=== PATIENT | male | born 1990 | race Caucasian/White ===

== ENCOUNTER → 2017-07-31 12:44 | Outpatient (CLI) | payer MEDICARE, MEDICAID, SELFPAY ==
--- NOTE | 2017-07-31 12:53 | MRI_ITS ---
STUDY: MRI RIGHT MIDFOOT REASON FOR EXAM: Fracture one year ago from a fall, without healing. TECHNIQUE: Standardized fat and water weighted pulse sequences were obtained in all 3 orthogonal planes. COMPARISON: Radiographs 03/15/2017. FINDINGS: There is a small tibiotalar joint effusion (inversion recovery sagittal image 15). Normal posterior subtalar articulation. Normal talonavicular articulation. Normal calcaneocuboid articulation. Normal navicular-cuneiform articulations. Normal intercuneiform articulations. Normal first tarsometatarsal articulation. Normal Lisfranc ligament. Normal second and third tarsometatarsal articulations. Normal cuboid fourth and cuboid fifth tarsometatarsal articulation. There is a chronic fracture of the fifth metatarsal base without osseous union (T1 sagittal images 20, 21) with associated bone edema (inversion recovery sagittal images 20, 21). Normal tibialis anterior tendon. Normal extensor hallucis longus tendon. Normal extensor digitorum longus tendons. Normal peroneus longus tendon and distal insertion. Normal peroneus brevis tendon and distal insertion. Normal intrinsic muscles of the foot. Normal plantar fascia. Normal subcutis adipose space. MRI/Lower Ext/No Jt/w/o IMPRESSION: Chronic fracture of the fifth metatarsal base without osseous union and with bone edema. Electronically Signed: Heath Osorio MD at 14:55 EST Tel , Service support ,
--- NOTE | 2017-07-31 13:22 | RAD_ITS ---
STUDY: X-RAY - ORBITS REASON FOR EXAM: Male, 26 years old. This study is being performed as a clearance examination for exclusion of orbital metal, prior to the performance of an MRI examination. TECHNIQUE: 2 view(s) of the orbits were obtained. COMPARISON: None. FINDINGS: Normal bilateral orbits without a metallic orbital foreign body. Normal visualized facial bones. Normal paranasal sinuses. The soft tissue structures are unremarkable. RAD/Orbits for Foreign Body IMPRESSION: No demonstrated metallic orbital foreign body. The patient is cleared for an MRI examination. Electronically Signed: Dev Piedra MD at 13:50 EST Tel [phone], Service support ,
== END ==
PROVIDERS: Family Provider Family Medicine; PCP Family Medicine; Visit Provider Podiatrist
DX: S92.354D Nondisplaced fracture of fifth metatarsal bone, right foot, subsequent encounter for fracture with routine healing (principal); Q66.89 Other specified congenital deformities of feet
CPT/HCPCS: 70030; 73718

== ENCOUNTER 2018-07-24 22:35 | Emergency (ER) | payer MEDICARE, SELFPAY ==
[2018-07-24 22:35] VITALS: BP 123/93; PULSE 77; RESP 16; TEMP 36.6; O2SAT 99; BMI 30.1
[2018-07-24] MEDS: 0.9% Normal Saline 1,000 ML 1000 ML IV (23:04)
[2018-07-24 23:06] VITALS: BP 128/77; BP 129/51; BP 132/70; PULSE 71; PULSE 75; PULSE 76
[2018-07-24 23:23] LABS: Absolute Lymphocyte Count 2.18 X10^3/ul (0.83-4.51); Absolute Neutrophil Count 3.3 X10^3/uL (2.0-7.7); Basophil# 0.04 X10^3/uL; Basophil% 0.7 % (0-1); Eosinophils% 1.7 % (0-5); Hematocrit 43.9 % (40-54); Hemoglobin 14.9 g/dl (13.0-16.5); Lymphocyte # 2.18 X10^3/ul (4.0); Mean Corp Hgb Conc 33.9 g/gl (32-36); Mean Corpuscular Volume 88.3 fL (80-94); Mean Platelet Vol. 9.6 fl (6.2-12.0); Monocyte# 0.41 X10^3/uL; Monocyte% 6.8 % (0-10); Neutrophil # 3.33 X10^3/uL (2.7-7.7); Neutrophil % 54.8 % (47-70); POSITIVE COUNT NO; POSITIVE DIFFERENTIAL NO; POSITIVE MORPHOLOGY NO; Platelet Count 237 K/mm3 (150-450); RBC Distribution Width CV 11.5 % (11.6-14.6); RBC Distribution Width SD 36.8 fl (35.1-43.9); Red Blood Count 4.97 M/mm3 (4.6-6.2); White Blood Count 6.1 K/mm3 (4.4-11.0)
[2018-07-24 23:30] LABS: Anion Gap 7 (5-15); BUN 16 mg/dL (7-18); BUN/Creat Ratio 13.1 RATIO (10-20); Calcium,Total 8.5 mg/dL (8.5-10.1); Chloride 105 mmol/L (98-107); Creatinine, Serum 1.22 mg/dL (0.70-1.30); EST Glomerular Filtration Rate 74 mL/min (>60); Est Glom Filt Rate - Afr Amer 90 mL/min (>60); Estimated Creatinine Clearance 95.15 ml/min; Glucose 87 mg/dL (74-106); Potassium 3.7 mmol/L (3.5-5.1); Sodium Level 141 mmol/L (136-145)
[2018-07-24 23:38] LABS: International Normalized Ratio 1.1; Prothrombin Time (Protime)PT. 13.9 SECONDS (11.7-14.9)
--- NOTE | 2018-07-24 23:49 | ED.DCSUM_ITS ---
- ER Visit Summary Date of Service: 07/24/18 Chief Complaint: Blood in stool History of Present Illness: The patient is a [address] Solis Renee III. He reports that 3 days ago he began having blood in his stool. He reports that he has a history of irritable bowel syndrome and chronic diarrhea. States that 2 days ago he had blood with stool twice. States that yesterday happened 3-4 times and was maroon colored. Today he reports that he had one episode of bright red blood per rectum without stool. He denies any abdominal pain. No rectal pain. No nausea or vomiting. No personal or family history of Crohn's or ulcerative colitis. He had a colonoscopy approximately [address] Wyatt moyer. Review of systems: General: No fever, chills, cold sweats. Cardiovascular: No chest pain, palpitations. Respiratory: No cough, shortness of breath, dyspnea on exertion. Gastrointestinal: No abdominal pain, nausea, vomiting. Genitourinary: No dysuria, frequency, hematuria. Skin: No rash. Neuro: No headache, numbness, weakness. Physical Examination: Vitals: Stable. Afebrile. General: Well-nourished and well-developed. Head: Normocephalic atraumatic. Neck: Supple, no lymphadenopathy. No JVD. Nontender. Cardiovascular: Regular rate and rhythm. No murmurs. Respiratory: No respiratory distress. Clear to auscultation bilaterally. Abdominal: Soft, nontender, nondistended, normal bowel sounds. No guarding, rebound, or peritoneal signs. Rectal: Normal external exam. There are no fissures or hemorrhoids. A digital exam was not performed. Back: Nontender. Extremities: Nontender, no edema. Skin: Normal color, no rash. Neurologic: Alert and oriented ?3. Cranial nerves II through XII are intact. Normal strength and sensation. Psych: Normal affect. Test Results: CBC is normal. Hemoglobin is 14.9. Chem-7 is normal. INR is 1.1. PTT is 29.0. Emergency Department Course and Treatment: Orthostatic vital signs were negative. Patient did have a picture of a bright red blood in the toilet without stool. I do not feel that a Hemoccult is necessary. Treatment Plan: Patient is clinically stable and is stable by labs. He will be discharged instructions follow-up Dr. Paiz as soon as possible. He is instructed to return to emerge part for worsening bleeding, shortness of breath, fatigue, or any other concerns. Disposition: To home in improved and stable condition. Impression: 1. Stable lower GI bleed. This note was generated with fintonication software. It may contain incorrect words, spelling, and punctuation that were not noted in review of the chart prior to signing ED Disposition - Plan for ED Patient: Disposition: Home or Assisted Living Chief Complaint: GI Bleed Instructions: ED Hematochezia Stable Referrals: Dickson Urbina MD [STAFF PHYSICIAN] - As soon as possible
[2018-07-25 00:02] VITALS: BP 112/63; PULSE 74; RESP 18; O2SAT 97
--- NOTE | 2018-07-25 00:03 | ED.RN ---
THIS NURSE REVIEWED D/C INSTRUCTIONS WITH PT. PT VERBALIZED UNDERSTANDING OF INSTRUCTIONS. IV D/C. IV CATHETER INTACT. PT TOLERATED WELL. PT DENIES FURTHER NEEDS OR QUESTIONS AT THIS TIME. PT AMBULATES FROM ROOM ON OWN WITHOUT ASSISTANCE FROM STAFF
== END 2018-07-25 00:05 | disposition home or self-care (01) ==
PROVIDERS: Emergency Provider Emergency Medicine; Family Provider Family Medicine; PCP Family Medicine
DX: K92.1 Melena (principal)
CPT/HCPCS: 80048; 85025; 85610; 85730; 99285; J7030; A4216

== ENCOUNTER 2021-01-23 13:47 | Outpatient (RCR) | payer MEDICARE, MEDICAID, SELFPAY ==
--- NOTE | 2021-01-23 15:18 | HP.PTEVAL ---
Patient's Visit Information ELIZABETH TAPIA Jr. is a 30 year old M referred to Physical Therapy by ISAAC SMITH with a diagnosis of ANKYLOSING SPONDYLITIS, JANICE HIP DEFORMITY, CHRONIC PAIN SYNDROME AND OTHER.. Date of Evaluation: 01/23/21 Physical Therapist: Jazmin Baeza PT, Cert MDT - Visit Plan Frequency: 2-3x /Week Duration: 4-6 Weeks Plan: AQUATIC THERAPY FOR BACK AND HIP PAIN RELIEF, POSTURE CORRECTION/STRENGTHENING, INSTRUCTION IN APPROPRIATE BODY MECHANICS AND ACTIVITY MODIFICATIONS. DLS STARTING WITH A NEUTRAL SPINE PROGRESSING ROM TOLERATED. JANICE LE ROM, STRETCHING AND STRENGTHENING. HEP INSTRUCTION. - Subjective Work/Leisure: UNEMPLOYEED. SOCIAL: LIVES WITH GIRLFRIEND AND SON. Disability: YES - SINCE ABOUT 2016 FOR ANKYLOSING SPONDYLITIS, AND JANICE DEFORMED HIPS. Present symptoms: BACK AND HIP PAIN. PATIENT REPORTS HE IS HERE FOR HIS LOW BACK PAIN AND PAIN IN BOTH HIPS. INTERMITTENT SHOOTING PAIN DOWN RIGHT THIGH TO KNEE AND KNEE GIVES OUT CAUSING FALLS. MY BACK STIFFENS UP TO WHERE I CAN'T MOVE. Present since: ABOUT 5 YEARS AND WORSENING. Pain Scale: WORST 10/10, LEAST 5/10. Currently: 12/08. Commenced as a result of: HAD A BAD FALL AT 5 MONTHS OLD AND HAS HAD PAIN ALL HIS LIFE. FELL PAST ABOUT 15 STEPS HIGH. Symptoms at onset: LOW BACK PAIN AND JANICE LEG DYSFUNCTION. Worse: SITTING, BENDING, STANDING FOR TOO LONG, GOING OVER BUMPS RIDING IN CAR, LIFTING. Better: HEAT AND SOMETIMES MEDICINE. SOMETIMES EX'S HELPS BUT THEN IT HURTS MORE THE NEXT DAY. Disturbed sleep: YES. Previous history/Previous treatment: NO BACK SURGERY. NO HIP SURGERY. BACK REBECA APPROX 5 YEARS AGO BUT IT DIDN'T WORK. NO HIP INJECTIONS. PHYSICAL THERAPY ABOUT 5 YEARS AGO AND SOME OF THE EX'S HELPED AND SOME HURT A LOT. H/O CHIROPRACTIC TREATMENTS WITH TEMPORARY BENEFITS BUT TOO MUCH WOULD MAKE HIM STIFF THE NEXT DAY AND NOT ABLE TO GET OUT OF BED. CURRENTLY IN PAIN MGMT. Coughing/sneezing/straining: POSITIVE. Gait: LIMITED BY RIGHT HIP CATCHING. MAKES IT HARD TO MOVE R LEG AND LIMPS ON RIGHT LEG. MORE PAIN AND PRESSURE IN BACK WITH SITTING THAN WALKING. Difficulty initiating urinatin: NO. Accidents: SEE ABOVE. Unexplained weight loss: NO. Imaging: NO RECENT X-RAYS OF BACK OR HIPS THAT PATIENT CAN RECALL EXCEPT R HIP AFTER A FALL LAST YEAR. SEE [facility] EMR 2018: IMPRESSION: Chronic fracture of the fifth metatarsal base without osseous union and. with bone edema. . Electronically Signed: Heath Osorio MD. at 14:55 EST. PMH/Recent major surgery: PATIENT REPORTS HE FORGETS THINGS A LOT AND HAS SOME PINCHING IN HIS BRAIN AND DECREASED OXYGEN TO HIS BRAIN. BONE CHIP IN RIGHT ANKLE THAT HURTS WHEN HE WALKS. PATIENT REPORTS MAJOR DEPRESSION. *DX'S FROM DR. SMITH'S ORDER: HIGH RISK MEDICATION MGMT. CONGENITAL DEFORMITY OF JANICE HIP JTS. L SI JT PAIN. OA GENERALIZED OF MULTIPLE JOINTS, ANKYLOSING SPONDYLITIS. CHRONIC PAIN SYNDROME. OPIOID DEPENDENCE, CONTINUOUS. THORACIC PAIN* - Objective Sitting/Standing Posture: FAIR. NO RELEVENT LATERAL SHIFT. Active Correction of posture: NE. Other Observations: SLOW ANTALIGIC INDEP GAIT INTO PT LIMPING ON THE RIGHT LE AND NOT USING ANY ASSISTIVE DEVICES AND NO LOB. PATIENT IS ABLE TO TRANSFER FROM SIT TO STAND WITHOUT UE ASSIST. INDEP TRANSFERS SIT TO SUPINE AND REVERSE. Motor deficit: JANICE HIP WEAKNESS. RIGHT HIP GROSSLY 3+ TO 4-/5 AND C/O'S OF PAIN WITH TESTING. L HIP GROSSLY 4/5 AND MIN C/O PAIN WITH TESTING. RIGHT KNEE KNEE AND ANKLE 4/5. LEFT KNEE AND ANKLE 5/5. Sensory deficit: JANICE LE LIGHT TOUCH SENSATION APPEARS INTACT AND SYMMETRICAL. ROM deficit: SUPINE L HIP FLEX APPROX 100 DEG AND RIGHT 90 DEG WITH ERP. JANICE HIP IR IN SUPINE TO NEUTRAL WITH ERP. L HIP ER APPROX 50 DEG, R ER 10 DEG. Reflexes: 2/3 JANICE LE'S. Dural Signs: POSITIVE R LE. NEGATIVE LLE. Lumbar mvmt loss: flex - FAWAD. ext - MOD. R SG - FAWAD. L SG - MOD. PATIENT C/O INCRASED PAIN AND PRESSURE AND POPPING IN LOW BACK AND HIPS WITH LUMBAR ROM TESTING ALL PLANES. Core strength: POOR. Palpation: PATIENT DENIES TENDERNESS WITH PALPATION OF THORACIC, LUMBAR OR JANICE HIP REGIONS. OTHER: PATIENT WAS TEARFUL OFF AND ON THROUGHOUT THE SUBJECTIVE PORTIONG OF THE EVAL TODAY REPORTING HE TRIES TO PUSH THROUGHT THE PAIN BUT CAN'T. DISCUSSED POSSIBLE BENEFITS OF AQUATIC THERAPY AND PATIENT IS AGREEABLE. TREATMENT: NEUROMUSCULAR REEDUCATION - RETRAINING OF MVMT AND POSTURE FOR SITTING, LYING AND STANDING ACTIVITIES. REVIEWED CURRENT HEP FROM PREVIOUS THERAPY WHICH INCLUDES PRONE AND STANDING EXTENSION. ALSO DOING PUSH UPS BUT PATIENT REPORTS THAT IS ABOUT ALL. - Balance/Special Test Scores Oswestry Low Back Score: 47 - Goals Goal 1:: DECREASE C/O LOW BACK AND JANICE HIP PAIN. Goal Time Frame: 4-6 Weeks Goal 2:: IMPROVE PERSONAL CARE, LIFTING, WALKING, SITTING, STANDING, SLEEP, SOCIAL LIFE, TRAVEL AND HOMEMAKING FUNCTION. Goal Time Frame: 4-6 Weeks Goal 3:: INSTRUCT IN PROPHYLAXIS Goal Time Frame: 4-6 Weeks - Anticipated Interventions Patient/Client Instruction: Educate patient on: Condition, Plan of Care, Risk Factors, Benefits of Fitness Program For the Purpose of:: To improve self management Therapeutic Exercise to Include: Strength training, Body mechanics, Postural training, Flexibilty training, Gait and locomotor training, Neuromotor development, In an aquatic setting, Dynamic Lumbar Stabilization For the Purpose of:: To decrease pain, To improve muscle performance and motor function, To increase tolerance to activity/condition/position, To improve ability of physical actions for home/community/work/leisure, To improve gait and locomotor functions Thank you for the opportunity to evaluate your patient. For Medicare and Medicare HMO plans, please review the plan of care and approve it. It will need to be FAXED BACK to us at [phone] for Medicare purposes. For Medicare only, by signing this I certify the plan of care. Please let me know if there are questions or concerns regarding this plan of care. Physician Signature: Date:
--- NOTE | 2021-05-09 13:21 | HP.PT.NRP ---
ELIZABETH Vianey TAPIA Jr. was seen in my office for initial evaluation on 01/23/21. The following Plan of Care was established for this patient: Initial Frequency: 2-3x /Week Initial Duration: 4-6 Weeks Patient/Client Instruction: Educate patient on: Condition, Plan of Care, Risk Factors, Benefits of Fitness Program For the Purpose of:: To improve self management Therapeutic Exercise to Include: Strength training, Body mechanics, Postural training, Flexibilty training, Gait and locomotor training, Neuromotor development, In an aquatic setting, Dynamic Lumbar Stabilization For the Purpose of:: To decrease pain, To improve muscle performance and motor function, To increase tolerance to activity/condition/position, To improve ability of physical actions for home/community/work/leisure, To improve gait and locomotor functions This patient was last seen in our office 01/23/21. Pertinent comments regarding their Physical therapy will appear below: This patient has not returned to Physical Therapy and is appropriate to return to MD for further follow-up as needed. At this point I will be discontinuing this patient from physical therapy. I would be happy to see this patient again in the future if found appropriate by the physician. Thank you! Jazmin Baeza, PT, Cert MDT Balance/Gait/Functional tests - Balance/Special Test Scores Oswestry Low Back Score: 47
== END 2021-01-23 19:00 | disposition home or self-care (01) ==
LOC: PT 13:47
PROVIDERS: PCP Family Medicine
DX: Q65.9 Congenital deformity of hip, unspecified (principal); M53.3 Sacrococcygeal disorders, not elsewhere classified; M15.9 Polyosteoarthritis, unspecified; M54.6 Pain in thoracic spine; G89.4 Chronic pain syndrome; F11.20 Opioid dependence, uncomplicated
CPT/HCPCS: 97112; 97162

== ENCOUNTER 2021-07-14 23:15 | Emergency (ER) | payer MEDICARE, MEDICAID, SELFPAY ==
[2021-07-14 23:16] VITALS: BP 151/90; PULSE 79; RESP 18; TEMP 36.6; O2SAT 98; BMI 26.8
[2021-07-15] MEDS: Lidocaine 2% /Epi 1:100 (20ml) 20 ML VIAL INFILT (01:48)
--- NOTE | 2021-07-15 02:05 | EX.ED.DYSGE1 ---
HPI History of Present Illness Chief Complaint: Other, Pain/Inj Narrative Narrative: Patient is a 30-year-old male who states he felt a lump in his rectal region the other day. He states it was small in size but over the last 24 hours has grown significantly and has had increased pain. He denies any change in bowel habits or blood in the stool. He denies any fevers or chills. He states he is concerned he may have developed a hemorrhoid and secondary to this comes in for evaluation. [facility] Medical History (Updated 07/15/21 @ 02:[address] Royer Ortiz, DO) Depression Home Medications buprenorphine HCl [Belbuca] 300 mcg BUCCAL BID 07/14/21 [History Last Taken Unknown] hydrocortisone-pramoxine [Proctofoam HC] 1 applic IA DAILY PRN #10 g 07/15/21 [Rx Last Taken Unknown] oxycodone-acetaminophen [Percocet] 1 tab PO Q6H PRN 3 Days #12 tab 07/15/21 [Rx Last Taken Unknown] Allergy/AdvReac Type Severity Reaction Status Date / Time No Known Allergies Allergy Verified 07/14/21 23:19 Social History Smoking Status: Former smoker ROS ROS ED Constitutional Constitutional ED: Denies chills or fever(s) ENT ENT ED: Denies sore throat Cardiovascular Cardiovascular: Denies chest pain Respiratory/Chest Respiratory/Chest: Denies cough or dyspnea Gastrointestinal Gastrointestinal: Reports other Details: Positive rectal pain/hemorrhoid ; Denies abdominal pain, constipation, diarrhea, nausea or vomiting Genitourinary Genitourinary ED: Denies dysuria Musculoskeletal Musculoskeletal: Denies myalgias Integumentary Denies rash Neurologic Neurologic: Denies headache(s) Hematologic/Lymphatic Hematologic/Lymphatic: Denies easy bleeding or easy bruising EXAM Physical Exam Const Vital Signs: 07/14/21 23:16 07/14/21 23:22 Temperature 97.8 F Temperature Source Temporal Pulse Rate 79 Respiratory Rate 18 Respiratory Effort Normal Non-Labored Respiratory Pattern Normal Blood Pressure 151/90 H Blood Pressure Mean 110 Pulse Ox 98 Oxygen Delivery Method Room Air Positive well nourished and well developed General Appearance ED: well developed Eyes PERRL and EOMs intact bilaterally Neck supple Resp normal respiratory effort and clear to auscultation bilaterally Cardio regular rate and regular rhythm Narrative: Patient has a large thrombosed external hemorrhoid that is 1.5 cm x 3 cm in size. There is no active bleeding from it or no secondary changes to suggest infection. Extremity normal to inspection Neuro oriented x3 and CN's II-XII intact bilaterally Sensorium / Orientation: alert Psych mental status grossly normal Skin no rashes or lesions noted MDM MDM MDM Narrative Medical decision making narrative: Patient presented to the ER with a large thrombosed hemorrhoid. Secondary to this the area was cleaned with chlorhexidine and then anesthetized using 8 mL of 2% lidocaine with epinephrine local fashion. A 1.5 cm J-shaped incision was made to the lower portion of the hemorrhoid. Manual pressure and forceps were used to dissect the blood clots in the hemorrhoid drastically reduced in size. Patient had no further bleeding and with resolution of his thrombosed hemorrhoid will be discharged with symptomatic medications Discharge Plan Triage Chief Complaint: Other, Pain/Inj ED Provider: Royer Ortiz Dx/Rx/DC Orders Clinical Impression: External hemorrhoid, thrombosed Instructions: Thrombosed Hemorrhoids, ED Hemorrhoids Prescriptions: New Proctofoam HC 1-1 % foam 1 applic IA DAILY PRN (Reason: hemorrhoids) Qty: 10 RF: 0 oxycodone-acetaminophen [Percocet] 5-325 mg tablet 1 tab PO Q6H PRN (Reason: pain) 3 Days Qty: 12 RF: 0 No Action buprenorphine HCl [Belbuca] 300 mcg film 300 mcg BUCCAL BID RF: 0 Primary Care Provider: Lonnie Alvarado Referrals: Lonnie Alvarado MD [Primary Care Provider] - Disposition Disposition: Home, Self Care Discharge Date/Time: 07/15/21 02:10
== END 2021-07-15 02:10 | disposition home or self-care (01) ==
PROVIDERS: Emergency Provider Emergency Medicine; PCP Family Medicine; Visit Provider Emergency Medicine
DX: K64.5 Perianal venous thrombosis (principal); Z87.891 Personal history of nicotine dependence
CPT/HCPCS: 46320; 99282

== ENCOUNTER 2021-07-24 16:31 | Outpatient (CLI) | payer MEDICARE, MEDICAID, SELFPAY ==
--- NOTE | 2021-07-24 16:50 | RAD_ITS ---
INDICATION: LOW BACK PAIN M51.37 EXAMINATION/TECHNIQUE: X-RAY - XR Spine Lumbar 2 or 3 Views COMPARISON: 02/28/2012. FINDINGS: VERTEBRAE: Preserved vertebral body height. Bilateral L5-S1 pars defects. Grade 1 anterolisthesis L5 on S1.. Preservation of the normal lumbar lordosis. No significant facet arthropathy. DISCS: Disc spaces are maintained. INCLUDED ABDOMEN: Included bowel gas pattern is non-obstructive. RAD/Lumbar Spine 2 or 3 Views IMPRESSION: Bilateral L5-S1 pars defects with grade 1 anterolisthesis L5 on S1, unchanged since prior. Electronically Signed: Aldo Landon MD at 17:12 EST Tel , Service support ,
== END 2021-07-24 23:59 | disposition short-term general hospital (02) ==
LOC: RAD 16:38
PROVIDERS: PCP Family Medicine; Referring Provider Anesthesiology Pain Medicine; Visit Provider Anesthesiology Pain Medicine
DX: M51.37 Other intervertebral disc degeneration, lumbosacral region (principal); M47.816 Spondylosis without myelopathy or radiculopathy, lumbar region
CPT/HCPCS: 72100

== ENCOUNTER 2024-06-06 15:15 | Emergency (ER) | payer MEDICARE, SELFPAY ==
[2024-06-06 15:16] VITALS: BP 133/82; PULSE 88; RESP 16; TEMP 36.1; O2SAT 98; BMI 23.3
--- NOTE | 2024-06-06 15:24 | EDS_ITS ---
HPI <MARCELINO Harley - Last Filed: 06/06/24 17:05> History of Present Illness Chief Complaint: Lower Extremity Injury Narrative Narrative: Patient is a 33-year-old male with history of chronic back pain, chronic hip pain who presents to the [facility] part with 2 to 3 days of worsening pain to the left side of his left foot. Patient denies any specific injury. Patient states that the pain is worse with ambulation. Patient denies any nausea or vomiting. Patient is not diabetic. PFSH <MARCELINO Harley - Last Filed: 06/06/24 17:05> [facility] Medical History Alcohol poisoning Anxiety Chest tightness Depression IBS (irritable bowel syndrome) Palpitations PTSD (post-traumatic stress disorder) Syncope Home Medications ?Medication ?Instructions ?Recorded ?Last Taken ?Type dicyclomine 20 mg tablet 20 mg PO QACHS 09/20/22 Unknown History duloxetine 60 mg capsule,delayed 60 mg PO BID 09/20/22 Unknown History release loperamide 2 mg capsule 4 mg PO BID 09/20/22 Unknown History naproxen 500 mg tablet (Naprosyn) 500 mg PO BID PRN pain #20 tabs 06/06/24 Unknown Rx Allergy/AdvReac Type Severity Reaction Status Date / Time No Known Allergies Allergy Verified 06/06/24 15:15 Family History Mother Diabetes Myocardial infarction Father Seizures Hypertension Meniere's disease Grandmother Heart disease Grandmother CVA (cerebral vascular accident) Surgical History History of colonoscopy Social History Smoking Status: Former smoker alcohol intake: current substance use type: does not use caffeine: Yes (occasional) ROS <MARCELINO Harley - Last Filed: 06/06/24 17:05> ROS ED ROS Narrative Constitutional: Negative for fever, chills, weight loss, weakness Eyes: Negative for vision loss, vision change, double vision ENT: Negative for any sore throat, ear pain, congestion Cardiovascular: Negative for any chest pain, tightness, palpitations Respiratory: Negative for any cough, sputum production, hemoptysis, dyspnea, dyspnea on exertion, orthopnea Gastrointestinal: Negative for any abdominal pain, nausea, vomiting, diarrhea, constipation, blood in stool, blood in vomit : Negative for any urinary frequency, dysuria, retention, blood in urine Muscle skeletal: Negative for any neck pain, back pain. Positive for pain to the left foot Neurological: Negative for any headache, syncope, dizziness Skin: Negative for any rashes, itching, abrasions, lacerations Psychiatric: Negative for any depression, anxiety, stress, suicidal ideation, homicidal ideation Hematologic: Negative for any excessive bruising, easy bleeding EXAM <MARCELINO Harley - Last Filed: 06/06/24 17:05> Physical Exam Narrative Exam Narrative: Vital signs reviewed. HEET: Head normocephalic atraumatic, TMs clear bilaterally. Posterior pharynx is clear, moist mucous membranes. Nares clear bilaterally. Neck: Supple with no lymphadenopathy or tenderness. No signs of meningismus. Cardiac: Regular rate and rhythm no murmurs gallops or rubs, equal peripheral pulses bilaterally. Respiratory: Lungs clear to auscultation bilaterally. No chest tenderness. Abdomen: Soft, nontender, nondistended. No abdominal bruit or pulsatile masses. No hepatosplenomegaly Extremities: No peripheral edema, no signs of gross trauma or deformity. Patient's pain is along the fifth and fourth metatarsal, as well as the lateral aspect of the foot. There is no cellulitis, there is no ecchymosis, there is no sign of trauma. +2 pedal pulse Neuro: Cranial nerves II through XII intact, no focal neurological deficits. Skin: Clean dry and intact with no rash, purpura, petechiae, vesicles or pustules. Backs/flank: No CVA tenderness, no midline spinal tenderness, no deformity. Psych: Normal mood and affect. No SI, HI or acute psychosis. Const Vital Signs: 06/06/24 15:16 06/06/24 17:09 Temperature 97 F L 98.2 F Temperature Source Temporal Pulse Rate 88 77 Respiratory Rate 16 18 Blood Pressure 133/82 H 130/78 H Blood Pressure Mean 99 95 Pulse Ox 98 97 Oxygen Delivery Method Room Air <Dr. Major Caban, DO - Last Filed: 06/06/24 17:33> Physical Exam Const Vital Signs: 06/06/24 15:16 06/06/24 17:09 Temperature 97 F L 98.2 F Temperature Source Temporal Pulse Rate 88 77 Respiratory Rate 16 18 Blood Pressure 133/82 H 130/78 H Blood Pressure Mean 99 95 Pulse Ox 98 97 Oxygen Delivery Method Room Air [facility] <MARCELINO Harley - Last Filed: 06/06/24 17:05> [facility] Radiography Diagnostic Testing: Clinical Impression(s) from Imaging Studies Foot X-Ray 06/06/24 15:33 IMPRESSION: Negative left foot x-rays. Electronically Signed: Benjamin Rubalcava MD at 16:51 EST , Treatment and Re-Evaluation :: Differential diagnosis includes however is not limited to: Plantar fasciitis, fr acture, abscess, strain Patient appears generally well, vital signs are stable, patient is nontoxic- appearing. Presenting to the [facility] part with complaints of pain to the left foot. Patient has no signs of trauma. Patient was given IM Toradol. X-rays of the left foot shows no acute process. At this time, patient instructed to follow-up outpatient. He will follow-up with podiatry. All questions answered, stable for discharge. <Dr. Major Caban, DO - Last Filed: 06/06/24 17:33> [facility] Narrative Medical decision making narrative: Supervisory Physician Note Patient was seen and examined with the Advanced Practice Provider. Nursing notes and vital signs have been reviewed. Pertinent old records have been reviewed. I agree with the essential elements of the ANTONIO's history, physical exam, assessment, and plan. The differential diagnosis and management options were discussed with the ANTONIO. I participated in determining and agree with the management, procedures, final impression and disposition as documented. See changes noted by me. Please see addendum or separate note for any additional details. 33-year-old male with history of chronic pain presents for evaluation of left lateral foot pain. Denies any trauma or injury. Worse with ambulation. Onset couple days ago. Not diabetic. Denies fever, chills, nausea, vomiting. Pertinent physical exam findings: Left lateral foot is mildly tender to palpation on the dorsal aspect, no cellulitis, no crepitus, no rash or bullae, no ecchymosis, no swelling. Good capillary refill. Sensation intact. No tenderness to the ankle. Full range of motion. DP/PT pulses plus 2 out of 4 bilaterally. No Achilles tenderness. X-rays of the foot obtained. X-ray of the foot was interpreted by me, ED physician. No fracture or dislocation. At this point in time, no clear etiology for patient's pain. He was given pain medicine here. Tylenol Motrin as needed for pain. Follow-up with PCP and podiatry. Return precautions explained. Patient discharged home. Impression: 1. Left foot pain/strain 2. History of chronic Radiography Diagnostic Testing: Clinical Impression(s) from Imaging Studies Foot X-Ray 06/06/24 15:33 IMPRESSION: Negative left foot x-rays. Electronically Signed: Benjamin Rubalcava MD at 16:51 EST , Discharge Plan Triage Chief Complaint: Lower Extremity Injury ED Midlevel Provider: Alvin Khanna ED Provider: Major Caban Dx/Rx/DC Orders Clinical Impression: Acute foot pain Instructions: Parts of a Foot, Foot Ankle Single Leg Heel Raise, ED RICE Prescriptions: New naproxen [Naprosyn] 500 mg tablet 500 mg PO BID PRN (Reason: pain) Qty: 20 0RF No Action duloxetine 60 mg capsule,delayed release(DR/EC) 60 mg PO BID dicyclomine 20 mg tablet 20 mg PO QACHS loperamide 2 mg capsule 4 mg PO BID Primary Care Provider: Farheen Menezes Referrals: Juan Manuel Shine DPM [Med Staff - Active Staff] - Lonnie Alvarado MD [Non-Staff] - Activity Restrictions/Additional Instructions: Please follow-up outpatient. Follow-up with podiatry. Print Language: Upper Sorbian Disposition Disposition: Home, Self Care Discharge Date/Time: 06/06/24 17:11
--- NOTE | 2024-06-06 15:33 | RAD_ITS ---
EXAM: XR LEFT FOOT COMPLETE, 3 OR MORE VIEWS CLINICAL INDICATION: foot pain TECHNIQUE: Frontal, lateral and oblique views of the left foot. COMPARISON: No relevant prior studies available. FINDINGS: BONES/JOINTS: Unremarkable. No acute fracture. No subluxation. Normal alignment. Preservation of the joint space. No sclerotic or destructive changes observed. SOFT TISSUES: Unremarkable. No soft tissue swelling or gas. No radiopaque foreign body. RAD/Foot min 3 Views IMPRESSION: Negative left foot x-rays. Electronically Signed: Benjamin Rubalcava MD at 16:51 EST ,
[2024-06-06] MEDS: Ketorolac 15 MG/ML Vial IM (16:56)
[2024-06-06 17:09] VITALS: BP 130/78; PULSE 77; RESP 18; TEMP 36.8; O2SAT 97
== END 2024-06-06 17:11 | disposition home or self-care (01) ==
PROVIDERS: Emergency Provider Surgery; PCP Nurse Practitioner Family; Visit Provider Surgery
DX: S96.912A Strain of unspecified muscle and tendon at ankle and foot level, left foot, initial encounter (principal); X58.XXXA Exposure to other specified factors, initial encounter; Z87.891 Personal history of nicotine dependence
CPT/HCPCS: 73630; 96372; 99282

== ENCOUNTER 2024-11-07 04:34 | Emergency (ER) | payer MEDICARE, MEDICAID, SELFPAY ==
[2024-11-07 04:34] VITALS: BP 149/69; PULSE 62; RESP 18; TEMP 36.6; O2SAT 98; BMI 23.1
--- NOTE | 2024-11-07 04:45 | CT_ITS ---
PROCEDURE: SPINE LUMBAR WITHOUT CONTRAST 11/07/2024 REASON FOR EXAM: PAIN TECHNIQUE: Lumbar spine CT without contrast. Coronal and Sagittal reconstruction series were provided. One or more dose reduction techniques were used (e.g., Automated exposure control, adjustment of the mA and/or kV according to patient size, use of iterative reconstruction technique COMPARISON: None. RADIATION DOSE SUMMARY: CTDlvol: 13.83 mGy DLP: 561.10 mGycm FINDINGS: The visualized lung bases appear clear. No acute fracture or malalignment. Multilevel spondylosis/discogenic change. L3-4 [id number] disc space narrowing with degenerative endplate change. L4-5 moderate disc space narrowing with degenerative endplate change. No evidence of significant appearing central or foraminal narrowing identified. There is a small calcification seen at the area of the right ureterovesical junction and difficult to exclude a distal ureteral stone for example coronal 34 and axial 142.. May correlate for hematuria, clinically correlate. Limited images of the retroperitoneum with suggestion of possible mild asymmetric right hydronephrosis. Motion artifact. Bilateral hip degenerative change, osteoarthrosis. CT/Spine Lumbar without Contrast IMPRESSION: There is a small calcification seen at the area of the right ureterovesical tristan ction and difficult to exclude a distal ureteral stone for example coronal 34 and axial 142.. May correlate for hematuria, clini deni correlate. Limited images of the retroperitoneum with suggestion of possible mild asymmetric right hydronephrosi s. Motion artifact. Multilevel spondylosis/discogenic change as above. Reading Location: [id number]
--- NOTE | 2024-11-07 04:46 | EDS_ITS ---
HPI History of Present Illness Chief Complaint: Back Narrative Narrative: 33-year-old male past medical history of chronic back pain and congenital hip deformity presents with low back pain/exacerbation of his chronic back pain. He states he takes the medication written by his primary care provider there is a combination analgesic and antidepressant. He took it last night. This morning he awoke, and had pain as low back that radiates more towards the right. No recent fevers or chills, no falls. No loss of bowel or bladder. He called EMS to bring him in his son to the emergency department secondary to the pain. He states it hurt more when he tried to move. He states he has past medical history of the hip deformity, ankylosing spondylitis, degenerative disc disease, as well as his congenital hip problem. [facility] Medical History IBS (irritable bowel syndrome) Palpitations Alcohol poisoning PTSD (post-traumatic stress disorder) Anxiety Chest tightness Syncope Depression Home Medications ?Medication ?Instructions ?Recorded ?Last Taken ?Type dicyclomine 20 mg tablet 20 mg PO QACHS 09/20/22 Unkn own History duloxetine 60 mg capsule,delayed 60 mg PO BID 09/20/22 Unknown History release loperamide 2 mg capsule 4 mg PO BID 09/20/22 Unknown History naproxen 500 mg tablet (Naprosyn) 500 mg PO BID PRN pa in #20 tabs 06/06/24 Unknown Rx Allergy/AdvReac Type Severity Reaction Status Date / Time No Known Allergies Allergy Verified 11/07/24 04:34 Family History Mother Diabetes Myocardial infarction Father Seizures Hypertension Meniere's disease Grandmother Heart disease Grandmother CVA (cerebral vascular accident) Surgical History History of colonoscopy Social History Smoking Status: Former smoker alcohol intake: current substance use type: does not use caffeine: Yes (occasional) ROS ROS ED ROS Narrative Review of systems positive for low back pain with radiation towards right. No fevers or chills, no loss of bowel or bladder, no recent falls. Pain worse with movement. EXAM Physical Exam Narrative Exam Narrative: Afebrile. Vital signs noted. Nontoxic-appearing. Cardiovascular examination reveals a regular rate and rhythm. Lungs are clear to auscultation bilaterally. Abdomen is soft, nontender with normoactive bowel sounds. No guarding or rebound. Back examination reveals no crepitance, no erythema. He appears neuro vastly intact to the bilateral lower extremities with palpable dorsalis pedis pulses bilaterally. He is able to flex and extend at the hips and knees bilaterally. He states he has pain with leaning forward, but he is able to perform this maneuver slowly. Const Vital Signs: 11/07/24 04:34 Temperature 98 F Temperature Source Oral Pulse Rate 62 Respiratory Rate 18 Blood Pressure 149/69 H Blood Pressure Mean 95 Pulse Ox 98 Oxygen Delivery Method Room Air MDM MDM MDM Narrative Medical decision making narrative: Differential diagnosis includes but not limited to acute on chronic back pain versus fracture. I have low suspicion for cauda equina syndrome because there are no red flag signs. He was actually seen ambulating to the bathroom independently by myself. I will obtain CT imaging to rule out fracture given his reported history of ankylosing spondylitis. For analgesia he was administered Toradol, Norflex, and morphine intramuscularly. As he appears neurovascularly intact and is able to ambulate I do not feel that he requires stat MRI. I reviewed the radiology report of the lumbar spine and they comment on a small calcification seen in the area of the right ureterovesicular junction and they cannot exclude a distal ureteral stone. Patient is not having hematuria and this does not clinically correlate. He may have phlebolith. There is motion artifact. On review of the radiology report further there is no acute fracture but he does have multilevel degenerative changes of the lumbar spine. He has multilevel spondylosis and discogenic changes. Upon repeat examination at approximately 5:50 AM, he is resting comfortably. Once again he was seen ambulating about the ED. I feel he can be discharged to follow-up with his primary care provider. He will already continue the medications he has been given by his primary care provider for his chronic back pain. Return instructions to the emergency department were reviewed. Disposition is discharged home in stable condition. History & Record Review Discussion w/independent historian: Patient Radiography Diagnostic Testing: Clinical Impression(s) from Imaging Studies Lumbar Spine CT 11/07/24 04:45 IMPRESSION: There is a small calcification seen at the area of the right ureterovesical junction and difficult to exclude a distal ureteral stone for example coronal 34 and axial 142.. May correlate for hematuria, clinically correlate. Limited images of the retroperitoneum with suggestion of possible mild asymmetric right hydronephrosis. Motion artifact. Multilevel spondylosis/discogenic change as above. Reading Location: [facility] Discharge Plan Triage Chief Complaint: Back ED Provider: Myles Sung Dx/Rx/DC Orders Clinical Impression: Acute exacerbation of chronic low back pain, Degenerative joint disease (DJD) of lumbar spine Instructions: ED Back Pain (Acute or Chronic), ED Back Spasm, No Trauma Prescriptions: No Action duloxetine 60 mg capsule,delayed release(DR/EC) 60 mg PO BID dicyclomine 20 mg tablet 20 mg PO QACHS loperamide 2 mg capsule 4 mg PO BID naproxen [Naprosyn] 500 mg tablet 500 mg PO BID PRN (Reason: pain) Qty: 20 0RF Primary Care Provider: Farheen Menezes Referrals: Farheen Menezes, MANAGER [facility] [Primary Care Provider] - 3-5 Days if not improving Activity Restrictions/Additional Instructions: Return with fever, increased pain, blood in your urine, new or worsening symptoms. Follow-up with your primary care provider. Print Language: Bulgarian Disposition Disposition: Home, Self Care
[2024-11-07] MEDS: Ketorolac 30 MG/ML Syringe IM (04:54)
[2024-11-07] MEDS: Orphenadrine 60 MG/2 ML Ampul IM (04:54)
[2024-11-07] MEDS: Morphine 4 MG/ML Syringe IM (04:54)
[2024-11-07 06:02] VITALS: BP 144/86; PULSE 59; RESP 16; TEMP 36.9; O2SAT 99
== END 2024-11-07 06:03 | disposition home or self-care (01) ==
PROVIDERS: Emergency Provider Emergency Medicine; PCP Nurse Practitioner Family; Visit Provider Emergency Medicine
DX: M47.816 Spondylosis without myelopathy or radiculopathy, lumbar region (principal); Q65.9 Congenital deformity of hip, unspecified; G89.29 Other chronic pain; Z87.891 Personal history of nicotine dependence
CPT/HCPCS: 72131; 96372; 99284